=== PATIENT | female | born 1940 | race Caucasian/White ===

== ENCOUNTER 2017-01-13 10:02 | Emergency (ER) | payer MEDICARE, MEDICAID ==
[~2017-01-13] VITALS: Ht 147.3 cm; Wt 43.2 kg
[~2017-01-13 10:02] MED LIST: ACTOS 15MG TAB15 MG PO; ALPRAZOLAM0.5 MG PO; ASPIRIN 81M81 MG/TA2 PO; BACTRIM DS 8001 TAB PO; CEFTIN500 MG PO; DUO-KAPS1 CAP PO; FLEXERIL5 MG PO; GLIPIZIDE XL5 MG PO; GLIPIZIDE10 MG PO; GLUCOPHAGE1000 MG PO; GLUCOTROL XL10 MG PO; GLUCOTROL10 MG PO; GLUCOTROL5 MG PO; HYDROCODONE/APAP; HYOSCYAMINE0.125 M5 SL; LANTUS100 U/ML SC; LEVEMIR100 U/ML; LEVEMIR100 U/ML SC; LIPITOR 10MG10 MG PO; LOPRESSOR 550 MG/TAB PO; LOTREL 10 MG-401 CAP PO; LOTREL 5 MG-201 CAP PO; METFORMIN500 MG PO; METOPROLOL SUCC50 MG PO; NEXIUM40 MG PO; PERCOCET 325 MG1 TA2 PO; PERCOCET 5/321 UDTAB PO; PYRIDIUM200 M1 PO; REMERON30 MG PO; SINGULAIR 110 MG/TAB PO; SINGULAIR10 MG PO; TOPROL XL100 MG PO; UNABLE; VENTOLIN0.09 MG IH; XANAX 0.5MG0.5 MG PO; XANAX0.25 MG PO; XANAX0.5 MG PO; ZITHROMAX 250M250 MG PO; ZITHROMAX Z PA250 MG PO; ZOFRAN 4MG T4 MG/TAB PO; [UNRECOGNIZED DRUG - REMARK]
[2017-01-13 10:03] VITALS: BP 167/72; PULSE 76; TEMP 97.5
[2017-01-13 10:43] LABS: BASO # 0.1 (0.0-0.2); BASO % 0.9 % (0.0-2.0); EOS # 0.2 (0.0-0.7); EOS % 2.7 % (0-4.0); GRAN # 3.2 (1.4-6.5); GRAN % 50.9 % (42.2-75.2); LYMPH # 2.4 (1.2-3.4); LYMPH % 36.9 % (20.0-51.0); MEAN CELL VOLUME 88 fl (80.0-100.0); MEAN CORPUSCULAR HGB CONC 32 g/dl (33.0-37.0); MONO # 0.5 (0.1-0.6); MONO % 8.3 % (1.7-9.3); PLATELET COUNT 132 K/mm3 (130-400); RED BLOOD COUNT 4.16 M/mm3 (4.10-5.30); WHITE BLOOD COUNT 6.4 K/mm3 (4.8-10.8)
[2017-01-13 10:45] LABS: HEMATOCRIT 36.7 % (37.0-47.0); HEMOGLOBIN 11.9 g/dl (12.5-16.0); MEAN CORPUSCULAR HEMOGLOBIN 29 pg (27.0-31.0)
[2017-01-13 10:52] LABS: ADJUSTED CALCIUM 10.6 mg/dL (8.4-10.2); ALBUMIN 4.3 gm/dL (3.5-5.0); BILIRUBIN,TOTAL 0.9 mg/dL (0.0-1.0); CALCIUM 10.8 mg/dL (8.4-10.2); CREATININE, serum 0.9 mg/dL (0.52-1.25); POTASSIUM 4.3 mmol/L (3.4-5.0); TOTAL PROTEIN 7.5 gm/dL (6.4-8.2)
[2017-01-13] MEDS ORDERED: NORVASC 10MG10 MG PO (11:29)
[2017-01-13] MEDS ORDERED: HUMALOG100 U/ML SQ (11:31)
[2017-01-13] MEDS ORDERED: ZESTRIL40 MG PO (11:32)
[2017-01-13] MEDS ORDERED: PREDFORTE5ML (11:35)
[2017-01-13] MEDS ORDERED: RESTASIS 60VL (11:36)
[2017-01-13] MEDS ORDERED: PREVALITE4 GM/5.5 G PO (11:36)
[2017-01-13] MEDS ORDERED: PROAIR HFA0.09 MG/AC IH (11:36)
[2017-01-13] MEDS ORDERED: DUREZOL 5 ML5 ML OU (11:37)
[2017-01-13] MEDS ORDERED: POLYMYXIN B/TRIMETH (11:38)
[2017-01-13] MEDS ORDERED: NATURE'S BLE1000 MCG PO (11:58)
[2017-01-13] MEDS ORDERED: ANTIVERT 25MG25 MG PO (12:38)
== END 2017-01-13 12:53 | disposition home or self-care (01) ==
LOC: COL.ER 10:02
PROVIDERS: Emergency Medicine
DX: R42 Dizziness and giddiness (principal); E11.9 Type 2 diabetes mellitus without complications; I10 Essential (primary) hypertension; Z79.84 Long term (current) use of oral hypoglycemic drugs
CPT/HCPCS: J2550; J7030

== ENCOUNTER 2017-04-26 20:23 | Emergency (ER) | payer MEDICARE, MEDICAID ==
[~2017-04-26] VITALS: Ht 147.3 cm; Wt 43.6 kg
[~2017-04-26 20:23] MED LIST changes: +ANTIVERT 25MG25 MG PO; +DUREZOL 5 ML5 ML OU; +HUMALOG100 U/ML SQ; +NATURE'S BLE1000 MCG PO; +NORVASC 10MG10 MG PO; +POLYMYXIN B/TRIMETH; +PREDFORTE5ML; +PREVALITE4 GM/5.5 G PO; +PROAIR HFA0.09 MG/AC IH; +RESTASIS 60VL; +ZESTRIL40 MG PO
[2017-04-26 20:26] VITALS: BP 169/77; TEMP 99.4
[2017-04-26 22:20] VITALS: PULSE 72
== END 2017-04-26 22:22 | disposition home or self-care (01) ==
LOC: COL.ER 20:23
DX: T26.62XA Corrosion of cornea and conjunctival sac, left eye, initial encounter (principal); E11.9 Type 2 diabetes mellitus without complications; I10 Essential (primary) hypertension; F32.9 Major depressive disorder, single episode, unspecified; F41.9 Anxiety disorder, unspecified; K58.9 Irritable bowel syndrome, unspecified; Z87.891 Personal history of nicotine dependence; Z79.4 Long term (current) use of insulin; Z79.84 Long term (current) use of oral hypoglycemic drugs; Z79.82 Long term (current) use of aspirin

== ENCOUNTER 2017-08-28 19:53 | Emergency (ER) | payer MEDICARE, MEDICAID ==
[~2017-08-28] VITALS: Ht 147.3 cm; Wt 42.7 kg
[2017-08-28 19:59] VITALS: TEMP 99
[2017-08-28 20:45] LABS: BASO # 0.1 (0.0-0.2); EOS # 0.2 (0.0-0.7); EOS % 2.5 % (0-4.0); GRAN # 2.9 (1.4-6.5); LYMPH # 3.9 (1.2-3.4); LYMPH % 50.2 % (20.0-51.0); MEAN CELL VOLUME 90 fl (80.0-100.0); MEAN CORPUSCULAR HGB CONC 33 g/dl (33.0-37.0); MEAN PLATELET VOLUME 9.8 fl (7.4-10.4); MONO # 0.7 (0.1-0.6); MONO % 9.2 % (1.7-9.3); PLATELET COUNT 139 K/mm3 (130-400); RED BLOOD COUNT 3.87 M/mm3 (4.10-5.30); WHITE BLOOD COUNT 7.9 K/mm3 (4.8-10.8)
[2017-08-28 20:47] LABS: HEMATOCRIT 34.8 % (37.0-47.0); HEMOGLOBIN 11.3 g/dl (12.5-16.0); MEAN CORPUSCULAR HEMOGLOBIN 29 pg (27.0-31.0)
[2017-08-28 20:52] LABS: INR 0.9 (0.8-3.0); PROTHROMBIN TIME 10.8 SECONDS (9.7-12.8)
[2017-08-28 20:54] LABS: PARTIAL THROMBOPLASTIN TIME 31.4 SECONDS (26.0-37.0)
[2017-08-28 20:57] LABS: ADJUSTED CALCIUM 9.9 mg/dL (8.4-10.2); ALANINE AMINOTRANSFERASE 36 U/L (9-52); ALBUMIN 4.5 gm/dL (3.5-5.0); ALKALINE PHOSPHATASE 60 U/L (50-136); ANION GAP 11 mmol/L (7-16); BILIRUBIN,TOTAL 0.4 mg/dL (0.0-1.0); BLOOD UREA NITROGEN 11 mg/dL (7-17); CALCIUM 10.3 mg/dL (8.4-10.2); CARBON DIOXIDE 24 mmol/L (22-30); CHLORIDE 102 mmol/L (98-107); CREATININE, serum 0.89 mg/dL (0.52-1.25); GLUCOSE 221 mg/dL (74-106); POTASSIUM 3.9 mmol/L (3.4-5.0); SODIUM 137 mmol/L (137-145); TOTAL PROTEIN 7.3 gm/dL (6.4-8.2)
[2017-08-28 21:08] LABS: TROPONIN-I < 0.012 ng/mL (0.000-0.034)
[2017-08-28 23:41] VITALS: BP 134/75; PULSE 64
== END 2017-08-28 23:51 | disposition home or self-care (01) ==
LOC: COL.ER 19:53
PROVIDERS: Emergency Medicine
DX: K21.9 Gastro-esophageal reflux disease without esophagitis (principal); K44.9 Diaphragmatic hernia without obstruction or gangrene; E11.9 Type 2 diabetes mellitus without complications; I10 Essential (primary) hypertension; E78.5 Hyperlipidemia, unspecified; Z79.4 Long term (current) use of insulin; Z79.82 Long term (current) use of aspirin; Z98.890 Other specified postprocedural states
CPT/HCPCS: J2405

== ENCOUNTER 2018-01-23 17:41 | Emergency (ER) | payer MEDICARE, MEDICAID ==
[~2018-01-23] VITALS: Ht 147.3 cm; Wt 41.8 kg
[2018-01-23 17:50] VITALS: TEMP 98.5
[2018-01-23 19:13] LABS: COLLECTION METHOD CLEAN CATCH
[2018-01-23 19:20] LABS: BASO # 0.1 (0.0-0.2); BASO % 0.9 % (0.0-2.0); EOS # 0.2 (0.0-0.7); EOS % 2.9 % (0-4.0); GRAN % 37.3 % (42.2-75.2); HEMATOCRIT 34.3 % (37.0-47.0); HEMOGLOBIN 10.8 g/dl (12.5-16.0); LYMPH % 50.1 % (20.0-51.0); MEAN CELL VOLUME 86 fl (80.0-100.0); MEAN CORPUSCULAR HEMOGLOBIN 27 pg (27.0-31.0); MEAN CORPUSCULAR HGB CONC 32 g/dl (33.0-37.0); MEAN PLATELET VOLUME 9.8 fl (7.4-10.4); MONO # 0.7 (0.1-0.6); MONO % 8.7 % (1.7-9.3); PLATELET COUNT 163 K/mm3 (130-400); RED BLOOD COUNT 3.99 M/mm3 (4.10-5.30); REDCELL DISTRIBUTION WIDTH-CV 13.2 % (11.5-14.5)
[2018-01-23 19:22] LABS: PH 5 (5-8); SQUAMOUS EPITHELIAL 0-2 /hpf; URINE APPEARANCE Clear; URINE BACTERIA None Seen /hpf; URINE BILIRUBIN Negative (NEGATIVE); URINE BLOOD Negative (NEGATIVE); URINE COLOR Yellow; URINE GLUCOSE Negative (NEGATIVE); URINE KETONE Negative (NEGATIVE); URINE LEUKOCYTE ESTERASE Trace (NEGATIVE); URINE NITRATE Negative (NEGATIVE); URINE PROTEIN(semi-quant) Negative (NEGATIVE); URINE RBC 0-2 /hpf; URINE UROBILINOGEN Negative (NEGATIVE)
[2018-01-23 19:31] LABS: ALANINE AMINOTRANSFERASE 30 U/L (9-52); ALBUMIN 4.4 gm/dL (3.5-5.0); ALKALINE PHOSPHATASE 80 U/L (50-136); ANION GAP 15 mmol/L (7-16); AST,SGOT 29 U/L (15-37); BILIRUBIN,TOTAL 0.6 mg/dL (0.0-1.0); BLOOD UREA NITROGEN 16 mg/dL (7-17); CALCIUM 10.9 mg/dL (8.4-10.2); CARBON DIOXIDE 25 mmol/L (22-30); CHLORIDE 100 mmol/L (98-107); CREATININE, serum 1.24 mg/dL (0.52-1.25); GLUCOSE 189 mg/dL (74-106); LIPASE 11 U/L (23-300); POTASSIUM 4.2 mmol/L (3.4-5.0); SODIUM 139 mmol/L (137-145); TOTAL PROTEIN 8.4 gm/dL (6.4-8.2)
[2018-01-23 19:41] LABS: C-REACTIVE PROTEIN < 0.5 mg/dL (0.0-0.9); TROPONIN-I < 0.012 ng/mL (0.000-0.034)
[2018-01-23] MEDS ORDERED: AMOXICILLIN 8751 TAB PO (21:17)
[2018-01-23] MEDS ORDERED: PERCOCET 325 MG1 TA2 PO (21:17)
[2018-01-23 21:24] VITALS: BP 165/81; PULSE 69
== END 2018-01-23 21:35 | disposition home or self-care (01) ==
LOC: COL.ER 17:41
PROVIDERS: Emergency Medicine
DX: K57.92 Diverticulitis of intestine, part unspecified, without perforation or abscess without bleeding (principal); G89.29 Other chronic pain; K08.89 Other specified disorders of teeth and supporting structures; E11.9 Type 2 diabetes mellitus without complications; I10 Essential (primary) hypertension; K58.9 Irritable bowel syndrome, unspecified; K21.9 Gastro-esophageal reflux disease without esophagitis; D64.9 Anemia, unspecified; Z87.39 Personal history of other diseases of the musculoskeletal system and connective tissue; Z90.710 Acquired absence of both cervix and uterus; Z90.49 Acquired absence of other specified parts of digestive tract; Z90.89 Acquired absence of other organs; Z98.890 Other specified postprocedural states; Z79.4 Long term (current) use of insulin; Z79.82 Long term (current) use of aspirin
CPT/HCPCS: J1170; J2405; J7040

== ENCOUNTER → 2019-03-26 | Outpatient (CLI) | payer MEDICARE, MEDICAID ==
[~2019-03-26] MED LIST changes: +AMOXICILLIN 8751 TAB PO
== END ==
LOC: COL.RAD 09:18
DX: R10.11 Right upper quadrant pain (principal); R10.12 Left upper quadrant pain

== ENCOUNTER 2019-04-21 05:44 | Day surgery (SDC) | payer MEDICARE, MEDICAID ==
[~2019-04-21] VITALS: Ht 144.8 cm; Wt 45.0 kg
[2019-04-21 06:17] VITALS: BP 157/58; PULSE 72; TEMP 98.2
[2019-04-21] MEDS ORDERED: LEVEMIR FLEX100 U/ML SQ (06:29)
[2019-04-21] MEDS ORDERED: LIDODERM 5% PATC1 EA TP (06:30)
[2019-04-21] MEDS ORDERED: ANTIVERT 12.512.5 MG PO (06:31)
[2019-04-21] MEDS ORDERED: VITAMIND3 5000 PO (06:32)
[2019-04-21] MEDS ORDERED: IBU600 MG PO (07:56)
[2019-04-21 08:17] VITALS: TEMP 97.6
[2019-04-21 08:30] VITALS: BP 138/58; PULSE 67
--- NOTE | 2019-04-21 08:30 | NUR ---
Patient returns to room 8 per cart from PACU and is alert and oriented x3. IV fluids infusing and site is free of redness. Temp 97.7 and room air sats 96%. Mesh panties and pad in place with scant bloody drainage noted. Denies pain or nausea at present. Siderails up x2 and call light in reach. Allowed to rest.
[2019-04-21 08:45] VITALS: BP 107/40; PULSE 62
--- NOTE | 2019-04-21 08:45 | NUR ---
Continues to rest without complaints of pain or nausea.
[2019-04-21 09:00] VITALS: BP 121/48; PULSE 65
--- NOTE | 2019-04-21 09:00 | NUR ---
Drinking coffee and eating jello. Continues to deny pain or nausea.
[2019-04-21 09:15] VITALS: BP 104/55; PULSE 65
--- NOTE | 2019-04-21 09:15 | NUR ---
Family in room. Room air sats 96%.
--- NOTE | 2019-04-21 09:25 | NUR ---
Patient assisted up to the bathroom and voids yellow urine. Jocelyn pad changed of scant pink tinged drainage. Returns to room and gait is steady.
--- NOTE | 2019-04-21 09:40 | NUR ---
IV was discontinued and given dismissal instructions. Voices understanding of home cares and need to use Premarin cream daily and to use vaseline or aquafor three times daily to incisional area. Provided follow up appointment date and time and office number for questions and concerns.
--- NOTE | 2019-04-21 09:44 | NUR ---
Patient dismissed to home per private vehicle driven by family and taken to the front door per wheelchair by RN and assisted into vehicle. Instructed to picker/puller script for Motrin from pharmacy.
== END 2019-04-21 09:44 | disposition home or self-care (01) ==
LOC: SDCO 05:44
DX: N90.5 Atrophy of vulva (principal); N90.89 Other specified noninflammatory disorders of vulva and perineum; N95.2 Postmenopausal atrophic vaginitis; M81.0 Age-related osteoporosis without current pathological fracture; K21.9 Gastro-esophageal reflux disease without esophagitis; G89.29 Other chronic pain; I12.9 Hypertensive chronic kidney disease with stage 1 through stage 4 chronic kidney disease, or unspecified chronic kidney disease; E11.22 Type 2 diabetes mellitus with diabetic chronic kidney disease; N18.3 Chronic kidney disease, stage 3 (moderate); F41.9 Anxiety disorder, unspecified; M46.90 Unspecified inflammatory spondylopathy, site unspecified; I25.2 Old myocardial infarction; D63.1 Anemia in chronic kidney disease; Z88.5 Allergy status to narcotic agent; Z88.8 Allergy status to other drugs, medicaments and biological substances; Z88.2 Allergy status to sulfonamides; Z88.1 Allergy status to other antibiotic agents; Z79.82 Long term (current) use of aspirin; Z79.4 Long term (current) use of insulin; Z79.52 Long term (current) use of systemic steroids; Z80.3 Family history of malignant neoplasm of breast; Z80.0 Family history of malignant neoplasm of digestive organs; Z87.891 Personal history of nicotine dependence; Z90.710 Acquired absence of both cervix and uterus; Z83.3 Family history of diabetes mellitus
CPT/HCPCS: J2405; J2704; J3010; J7030

== ENCOUNTER → 2019-11-26 | Outpatient (CLI) | payer MEDICARE, MEDICAID ==
[~2019-11-26] MED LIST changes: +ANTIVERT 12.512.5 MG PO; +IBU600 MG PO; +LEVEMIR FLEX100 U/ML SQ; +LIDODERM 5% PATC1 EA TP; +VITAMIND3 5000 PO
== END ==
LOC: COL.RAD 11-24 13:30
DX: K44.9 Diaphragmatic hernia without obstruction or gangrene (principal); J84.10 Pulmonary fibrosis, unspecified; I51.7 Cardiomegaly; I89.8 Other specified noninfective disorders of lymphatic vessels and lymph nodes; K75.3 Granulomatous hepatitis, not elsewhere classified; D73.89 Other diseases of spleen; I86.8 Varicose veins of other specified sites; M41.86 Other forms of scoliosis, lumbar region; Z90.49 Acquired absence of other specified parts of digestive tract; Z90.710 Acquired absence of both cervix and uterus; Z90.89 Acquired absence of other organs
CPT/HCPCS: Q9967

== ENCOUNTER → 2020-02-18 | Outpatient (CLI) | payer MEDICARE, MEDICAID ==
[~2020-02-18] MED LIST changes: +IRON TABLETS325 MG PO; +NEXIUM 40MG40 MG PO; +VITRON-C PO
== END ==
LOC: COL.RAD 08:47
DX: R10.9 Unspecified abdominal pain (principal); R14.0 Abdominal distension (gaseous); Z90.49 Acquired absence of other specified parts of digestive tract

== ENCOUNTER 2020-02-22 07:15 | Day surgery (SDC) | payer MEDICARE, MEDICAID ==
[~2020-02-22] VITALS: Ht 144.8 cm; Wt 49.3 kg
[~2020-02-22 07:15] MED LIST changes: -VITRON-C PO
[2020-02-22 08:03] VITALS: BP 149/59; PULSE 60; TEMP 97.6
[2020-02-22] MEDS ORDERED: VITRON-C PO (08:15)
[2020-02-22 09:35] VITALS: BP 130/66; PULSE 67; TEMP 97.6
--- NOTE | 2020-02-22 09:35 | NUR ---
TO BAY 3 PER CART FROM ENDOSCOPY. ALERT ORIENTED X3, TALKING TO DAUGHTER AND STAFF. AMBULATED TO RECLINER WITH ASSIST. DENIES PAIN OR DISCOMFORT AT THIS TIME. RECEIVED COFFEE AND MUFFIN.
[2020-02-22 09:50] VITALS: BP 78/52; PULSE 60
--- NOTE | 2020-02-22 09:50 | NUR ---
DR OJEDA INTO TALK WITH PATIENT AND HER DAUGHTER .
[2020-02-22 10:05] VITALS: BP 146/76; PULSE 61
--- NOTE | 2020-02-22 10:05 | NUR ---
ATE 50% MUFFIN AND DRANK COFFEE.
--- NOTE | 2020-02-22 10:20 | NUR ---
RECEIVED DISCHARGE INSTRUCTIONS AND VERBALIZED UNDERSTANDING. DISCONTINUED IV AND INT
--- NOTE | 2020-02-22 10:30 | NUR ---
DAUGHTER ASSISTED HER DRESSED AND CLEANED UP FROM INCONTINENT STOOL. UPON STANDING PATIENT STATED SHE HAD ANOTHER ACCIDENT IN HER PAD. NURSE ASSISTED PATIENT TO BATHROOM. CHANGED PAD, PERICARE AND NEW PAD AND HOSPITAL PJ BOTTOMS.
--- NOTE | 2020-02-22 10:50 | NUR ---
DISCHARGED PER WC BY NURSING STAFF TO PRIVATE CAR IN CARE OF DAUGHTER SANCHEZ
== END 2020-02-22 11:00 | disposition home or self-care (01) ==
LOC: SDCO 07:15
DX: K29.50 Unspecified chronic gastritis without bleeding (principal); D50.9 Iron deficiency anemia, unspecified; K21.9 Gastro-esophageal reflux disease without esophagitis; K31.84 Gastroparesis; K58.0 Irritable bowel syndrome with diarrhea; I25.2 Old myocardial infarction; G89.29 Other chronic pain; I12.9 Hypertensive chronic kidney disease with stage 1 through stage 4 chronic kidney disease, or unspecified chronic kidney disease; E11.22 Type 2 diabetes mellitus with diabetic chronic kidney disease; N18.3 Chronic kidney disease, stage 3 (moderate); D63.1 Anemia in chronic kidney disease; Z20.828 Contact with and (suspected) exposure to other viral communicable diseases; Z86.010 Personal history of colon polyps; Z79.82 Long term (current) use of aspirin; Z79.4 Long term (current) use of insulin; Z88.2 Allergy status to sulfonamides; Z88.5 Allergy status to narcotic agent; Z88.8 Allergy status to other drugs, medicaments and biological substances; Z88.3 Allergy status to other anti-infective agents; Z90.710 Acquired absence of both cervix and uterus; Z90.49 Acquired absence of other specified parts of digestive tract; Z87.891 Personal history of nicotine dependence
CPT/HCPCS: J2704; J7030

== ENCOUNTER → 2021-06-12 | Outpatient (CLI) | payer MEDICARE, MEDICAID ==
[~2021-06-12] MED LIST changes: +NORCO 325 MG-51 TAB PO; +VITRON-C PO
== END ==
LOC: COL.RAD 09:21
DX: K46.0 Unspecified abdominal hernia with obstruction, without gangrene (principal); K22.4 Dyskinesia of esophagus; K44.9 Diaphragmatic hernia without obstruction or gangrene; K58.0 Irritable bowel syndrome with diarrhea; K21.9 Gastro-esophageal reflux disease without esophagitis; Z86.010 Personal history of colon polyps

== ENCOUNTER 2021-06-13 15:13 | Emergency (ER) | payer MEDICARE, MEDICAID ==
[~2021-06-13] VITALS: Ht 147.3 cm; Wt 50.9 kg
[~2021-06-13 15:13] MED LIST changes: -NORCO 325 MG-51 TAB PO
[2021-06-13 17:04] LABS: BASO # 0.1 K/mm3 (0.0-0.2); BASO % 0.8 % (0.0-2.0); EOS # 0.2 K/mm3 (0.0-0.7); EOS % 2.9 % (0-4.0); GRAN # 2.3 K/mm3 (1.4-6.5); HEMOGLOBIN 12.2 g/dl (12.5-16.0); LYMPH # 2.7 K/mm3 (1.2-3.4); LYMPH % 45.7 % (20.0-51.0); MEAN CELL VOLUME 88 fl (80.0-100.0); MEAN CORPUSCULAR HEMOGLOBIN 29 pg (27.0-31.0); MEAN CORPUSCULAR HGB CONC 33 g/dl (33.0-37.0); MEAN PLATELET VOLUME 9.9 fl (7.4-10.4); MONO # 0.7 K/mm3 (0.1-0.6); MONO % 11.3 % (1.7-9.3); PLATELET COUNT 127 K/mm3 (130-400); REDCELL DISTRIBUTION WIDTH-CV 13.2 % (11.5-14.5)
[2021-06-13 17:28] LABS: ALBUMIN 3.7 gm/dL (3.4-4.8); BILIRUBIN,TOTAL 0.4 mg/dL (0.2-1.2); C-REACTIVE PROTEIN 0.7 mg/dL (0.00-0.50); CALCIUM 10.6 mg/dL (8.4-10.2); CREATININE, serum 1.4 mg/dL (0.57-1.11); POTASSIUM 3.9 mmol/L (3.5-4.5); TOTAL PROTEIN 7.2 gm/dL (6.2-8.1)
[2021-06-13] MEDS ORDERED: NORCO 325 MG-51 TAB PO (18:25)
[2021-06-13 19:22] VITALS: BP 150/81; PULSE 69; TEMP 97.6
== END 2021-06-13 19:22 | disposition home or self-care (01) ==
LOC: COL.ER 15:13
PROVIDERS: Emergency Medicine
DX: R10.31 Right lower quadrant pain (principal); R11.0 Nausea; E11.9 Type 2 diabetes mellitus without complications; I10 Essential (primary) hypertension; K21.9 Gastro-esophageal reflux disease without esophagitis; Z90.710 Acquired absence of both cervix and uterus; Z87.891 Personal history of nicotine dependence; Z79.4 Long term (current) use of insulin; Z79.899 Other long term (current) drug therapy
CPT/HCPCS: J2405; J3010; J7030; Q9967

== ENCOUNTER 2024-01-12 14:38 | Emergency (ER) | payer MEDICARE, MEDICAID ==
[~2024-01-12] VITALS: Ht 147.3 cm; Wt 50.9 kg
[~2024-01-12 14:38] MED LIST changes: +NORCO 325 MG-51 TAB PO
[2024-01-12 14:41] VITALS: TEMP 98.8
[2024-01-12] MEDS ORDERED: Ondansetron 4 MG/2 ML VIAL IV ONE (14:45)
[2024-01-12] MEDS ORDERED: Morphine 4 MG/ML VIAL IV ONE ×2 (14:45→18:15)
[2024-01-12] MEDS ORDERED: NS 1,000 ML IV ONE (15:00)
[2024-01-12 15:02] LABS: HEMATOCRIT 43.3 % (37.0-47.0); HEMOGLOBIN 14.3 g/dl (12.5-16.0); MEAN CELL VOLUME 85 fl (80.0-100.0); MEAN CORPUSCULAR HEMOGLOBIN 28 pg (27-31); MEAN CORPUSCULAR HGB CONC 33 g/dl (33.0-37.0); MEAN PLATELET VOLUME 9.9 fl (7.4-10.4); PLATELET COUNT 173 K/mm3 (130-400); RED BLOOD COUNT 5.07 M/mm3 (4.10-5.30); REDCELL DISTRIBUTION WIDTH-CV 13.1 % (11.5-14.5)
[2024-01-12 15:26] LABS: ACETONE,SERUM NEGATIVE
[2024-01-12 15:34] LABS: ALANINE AMINOTRANSFERASE 24 U/L (0-55); ALKALINE PHOSPHATASE 75 U/L (40-150); ANION GAP 12 mmol/L (7-16); AST,SGOT 21 U/L (5-34); BILIRUBIN,TOTAL 1.2 mg/dL (0.2-1.2); BLOOD UREA NITROGEN 21 mg/dL (10-20); C-REACTIVE PROTEIN 0.09 mg/dL (0.00-0.50); CALCIUM 11.2 mg/dL (8.4-10.2); CHLORIDE 102 mEq/L (98-107); CREATININE, serum 1.68 mg/dL (0.57-1.11); GLUCOSE 280 mg/dL (70-99); LIPASE 10 U/L (8-78); MAGNESIUM 1.9 mg/dL (1.6-2.6); POTASSIUM 4.4 mEq/L (3.5-4.5); SODIUM 136 mEq/L (136-145); TOTAL PROTEIN 7.6 g/dl (6.2-8.1)
[2024-01-12 15:44] LABS: PROTHROMBIN TIME 11.4 SECONDS (9.7-12.8)
[2024-01-12 15:47] LABS: PARTIAL THROMBOPLASTIN TIME 38.3 SECONDS (26.0-37.0)
[2024-01-12 16:04] LABS: COLLECTION METHOD CLEAN CATCH
[2024-01-12 16:11] LABS: PH 5.5 (5.0-8.5); URINE APPEARANCE CLEAR (CLEAR/HAZY); URINE BLOOD NEGATIVE (NEGATIVE); URINE COLOR YELLOW (YELLOW); URINE GLUCOSE 1+ (NEGATIVE); URINE KETONE NEGATIVE (NEGATIVE); URINE NITRATE NEGATIVE (NEGATIVE); URINE PROTEIN(semi-quant) TRACE (NEGATIVE); URINE UROBILINOGEN 0.2 E.U/dL (0.2-1.0)
[2024-01-12 16:33] LABS: BAND 4 % (0-10); EOSINOPHIL 1 % (0-4); LYMPHOCYTE 14 % (20.0-51.0); NEUTROPHILS 72 % (42.0-75.2)
[2024-01-12 16:34] LABS: ANISOCYTOSIS 1+; PLATELET ESTIMATE NORMAL (NORMAL)
[2024-01-12] MEDS ORDERED: Amoxicillin/Clavulanate K+ 500/125 MG TAB PO ONE (18:00)
[2024-01-12] MEDS ORDERED: AMOXICILLIN/CLA1 TA1 PO (18:05)
[2024-01-12] MEDS ORDERED: OXYCODONE H5 MG/5 ML PO (18:07)
[2024-01-12] MEDS ORDERED: ZOFRAN ODT4 MG PO (18:07)
[2024-01-12 18:21] VITALS: BP 149/68; PULSE 89
[2024-01-13] MEDS ORDERED: ROXICODONE 55 MG/TAB PO (09:16)
== END 2024-01-12 18:21 | disposition home or self-care (01) ==
LOC: COL.ER 14:38
PROVIDERS: Emergency Medicine
DX: K52.9 Noninfective gastroenteritis and colitis, unspecified (principal); Z88.2 Allergy status to sulfonamides
CPT/HCPCS: J2270; J2405; J7030

== ENCOUNTER 2024-01-13 12:02 | Emergency (ER) | payer MEDICARE, MEDICAID ==
[~2024-01-13] VITALS: Ht 147.3 cm; Wt 50.9 kg
[~2024-01-13 12:02] MED LIST changes: +AMOXICILLIN/CLA1 TA1 PO; +OXYCODONE H5 MG/5 ML PO; +ROXICODONE 55 MG/TAB PO; +ZOFRAN ODT4 MG PO
[2024-01-13] MEDS ORDERED: Ondansetron 4 MG/2 ML VIAL IV ONE (12:15)
[2024-01-13] MEDS ORDERED: fentaNYL 50 MCG/ML 2 ML VIAL IV ONE ×2 (12:15→12:30)
[2024-01-13] MEDS ORDERED: LR 1,000 ML IV ONE (12:15)
[2024-01-13] MEDS ORDERED: Acetaminophen 325 MG TAB PO ONE (12:30)
[2024-01-13 12:41] LABS: MEAN CELL VOLUME 86 fl (80.0-100.0); MEAN CORPUSCULAR HGB CONC 33 g/dl (33.0-37.0); PLATELET COUNT 125 K/mm3 (130-400); RED BLOOD COUNT 4.26 M/mm3 (4.10-5.30); REDCELL DISTRIBUTION WIDTH-CV 13.2 % (11.5-14.5)
[2024-01-13 12:48] LABS: HEMATOCRIT 36.6 % (37.0-47.0); HEMOGLOBIN 11.9 g/dl (12.5-16.0); MEAN CORPUSCULAR HEMOGLOBIN 28 pg (27-31)
[2024-01-13 12:58] LABS: ALBUMIN 3.3 g/dL (3.4-4.8); ANION GAP 10 mmol/L (7-16); AST,SGOT 16 U/L (5-34); BILIRUBIN,TOTAL 2.1 mg/dL (0.2-1.2); BLOOD UREA NITROGEN 19 mg/dL (10-20); C-REACTIVE PROTEIN 11.74 mg/dL (0.00-0.50); CALCIUM 9.4 mg/dL (8.4-10.2); CHLORIDE 99 mEq/L (98-107); CREATININE, serum 1.81 mg/dL (0.57-1.11); GLUCOSE 375 mg/dL (70-99); POTASSIUM 3.9 mEq/L (3.5-4.5); SODIUM 129 mEq/L (136-145); TOTAL PROTEIN 6.4 g/dl (6.2-8.1)
[2024-01-13 13:07] LABS: BAND 1 % (0-10); BASOPHIL 1 % (0-2); LYMPHOCYTE 27 % (20.0-51.0); NEUTROPHILS 63 % (42.0-75.2); PLATELET ESTIMATE NORMAL (NORMAL)
[2024-01-13 13:13] LABS: ALANINE AMINOTRANSFERASE 23 U/L (0-55); ALKALINE PHOSPHATASE 66 U/L (40-150)
[2024-01-13 13:17] LABS: LIPASE < 7 U/L (8-78)
[2024-01-13 14:46] VITALS: BP 119/59; PULSE 78; TEMP 98.9
== END 2024-01-13 15:23 | disposition home or self-care (01) ==
LOC: COL.ER 12:02
PROVIDERS: Family Medicine
DX: R10.9 Unspecified abdominal pain (principal); E11.65 Type 2 diabetes mellitus with hyperglycemia
CPT/HCPCS: J2405; J2543; J3010; J7120

== ENCOUNTER 2024-03-14 18:37 | Inpatient (IN) | payer MEDICARE, MEDICAID ==
[~2024-03-14] VITALS: Ht 147.3 cm; Wt 50.7 kg
[~2024-03-14 18:37] MED LIST changes: +PRINIVIL40 MG PO; -ZESTRIL40 MG PO
[2024-03-14] MEDS ORDERED: Ondansetron 4 MG/2 ML VIAL IV ONE (18:45)
[2024-03-14] MEDS ORDERED: LR 1,000 ML IV ONE (18:45)
[2024-03-14] MEDS ORDERED: Morphine 4 MG/ML VIAL IV ONE (19:00)
[2024-03-14 19:02] LABS: BASO # 0.1 K/mm3 (0.0-0.2); BASO % 0.3 % (0.0-2.0); EOS % 0.1 % (0.0-4.0); GRAN # 11.5 K/mm3 (1.4-6.5); GRAN % 77.2 % (42.2-75.2); HEMATOCRIT 40.6 % (37.0-47.0); HEMOGLOBIN 13.3 g/dl (12.5-16.0); LYMPH # 2.4 K/mm3 (1.2-3.4); LYMPH % 15.7 % (20.0-51.0); MEAN CELL VOLUME 83 fl (80.0-100.0); MEAN CORPUSCULAR HEMOGLOBIN 27 pg (27-31); MEAN CORPUSCULAR HGB CONC 33 g/dl (33.0-37.0); MEAN PLATELET VOLUME 10.2 fl (7.4-10.4); MONO # 0.9 K/mm3 (0.1-0.6); MONO % 6.2 % (1.7-9.3); PLATELET COUNT 156 K/mm3 (130-400); REDCELL DISTRIBUTION WIDTH-CV 14.5 % (11.5-14.5)
[2024-03-14 19:17] LABS: ALANINE AMINOTRANSFERASE 26 U/L (0-55); ALBUMIN 3.8 g/dL (3.4-4.8); ALKALINE PHOSPHATASE 65 U/L (40-150); ANION GAP 12 mmol/L (7-16); AST,SGOT 31 U/L (5-34); BILIRUBIN,TOTAL 1.1 mg/dL (0.2-1.2); BLOOD UREA NITROGEN 13 mg/dL (10-20); C-REACTIVE PROTEIN 0.77 mg/dL (0.00-0.50); CALCIUM 10.4 mg/dL (8.4-10.2); CHLORIDE 102 mEq/L (98-107); CREATININE, serum 1.61 mg/dL (0.57-1.11); GLUCOSE 268 mg/dL (70-99); POTASSIUM 4.6 mEq/L (3.5-4.5); SODIUM 131 mEq/L (136-145); TOTAL PROTEIN 6.5 g/dl (6.2-8.1)
[2024-03-14 19:18] LABS: LIPASE < 7 U/L (8-78)
[2024-03-14] MEDS ORDERED: Iohexol 300 - 100 ML VIAL IV ONE (20:13)
[2024-03-14] MEDS ORDERED: NS IV ONE (20:14)
[2024-03-14 20:53] LABS: COLLECTION METHOD CLEAN CATCH
[2024-03-14] MEDS ORDERED: NS 1,000 ML IV ONE (21:00)
[2024-03-14 21:02] LABS: URINE APPEARANCE CLEAR (CLEAR/HAZY); URINE BLOOD NEGATIVE (NEGATIVE); URINE COLOR YELLOW (YELLOW); URINE GLUCOSE TRACE (NEGATIVE); URINE KETONE NEGATIVE (NEGATIVE); URINE NITRATE NEGATIVE (NEGATIVE); URINE PROTEIN(semi-quant) NEGATIVE (NEGATIVE); URINE UROBILINOGEN 0.2 E.U/dL (0.2-1.0)
[2024-03-14] MEDS ORDERED: PROTONIX 40MG T40 MG PO (23:15)
[2024-03-14] MEDS ORDERED: LASIX 20MG TABL20 MG PO (23:16)
[2024-03-14] MEDS ORDERED: LANTUS SOLOS100 U/ML SQ (23:16)
[2024-03-14] MEDS ORDERED: HUMALOG PEN100 U/ML SQ (23:18)
[2024-03-14] MEDS ORDERED: Albuterol 0.083% Neb Soln 2.5 MG/3 ML UD IH PRN (23:30)
[2024-03-14] MEDS ORDERED: ALPRAZolam 0.5 MG TAB PO PRN (23:30)
[2024-03-14] MEDS ORDERED: Insulin Glargine-ygfn (Lantus) SQ SCH (23:36)
[2024-03-14] MEDS ORDERED: fentaNYL 50 MCG/ML 2 ML VIAL IV PRN (23:45)
[2024-03-14] MEDS ORDERED: LR 1,000 ML IV SCH (23:45)
[2024-03-14] MEDS ORDERED: Ondansetron 4 MG/2 ML VIAL IV PRN (23:45)
[2024-03-14] MEDS ORDERED: Glucagon 1 MG VIAL IM PRN (23:45)
[2024-03-14] MEDS ORDERED: NS 1,000 ML IV SCH (23:45)
[2024-03-14] MEDS ORDERED: Dextrose (Glucose) 15 GM (4 x 3.75 GM) Chewable TABLET PACK PO PRN (23:45)
[2024-03-14] MEDS ORDERED: Dextrose 50% Water 25 GM/50 ML SYRINGE IV PRN (23:45)
[2024-03-15] VITALS (12 sets, daily range): BP systolic 102–143; BP diastolic 43–70; PULSE 57–85; TEMP 97.5–99.9
[2024-03-15] MEDS ORDERED: Insulin Lispro (HumaLOG) SQ SCH
[2024-03-15] MEDS ORDERED: NS 1,000 ML IV SCH (01:00)
--- NOTE | 2024-03-15 01:39 | NUR ---
Admission assessment completed- see documentation. Pt is alert and oriented. She is resting in the bed. She reports 7/10 abdmoninal pain. However, she denies nausea at this time. All orders initiated and medications administered as ordered. Contact precautions in place. PRN fentanyl administered for pain. She denies any other needs at this time. Fall precautions in place and call light left within reach.
[2024-03-15 06:09] LABS: BASO % 0.4 % (0.0-2.0); EOS % 0.2 % (0.0-4.0); GRAN # 6.4 K/mm3 (1.4-6.5); LYMPH # 3.1 K/mm3 (1.2-3.4); LYMPH % 28.4 % (20.0-51.0); MEAN CELL VOLUME 82 fl (80.0-100.0); MEAN CORPUSCULAR HGB CONC 33 g/dl (33.0-37.0); MEAN PLATELET VOLUME 9.7 fl (7.4-10.4); MONO # 1.2 K/mm3 (0.1-0.6); MONO % 10.7 % (1.7-9.3); PLATELET COUNT 125 K/mm3 (130-400); RED BLOOD COUNT 3.98 M/mm3 (4.10-5.30); REDCELL DISTRIBUTION WIDTH-CV 14.6 % (11.5-14.5)
[2024-03-15 06:10] LABS: HEMATOCRIT 32.6 % (37.0-47.0); HEMOGLOBIN 10.7 g/dl (12.5-16.0); MEAN CORPUSCULAR HEMOGLOBIN 27 pg (27-31)
[2024-03-15 06:24] LABS: CALCIUM 8.8 mg/dL (8.4-10.2); CREATININE, serum 1.31 mg/dL (0.57-1.11); POTASSIUM 3.9 mEq/L (3.5-4.5)
--- NOTE | 2024-03-15 07:13 | NUR ---
Dr. Derian Quiles was contacted for a GI consult. He stated that we can advance pt to a clear liquid diet if that is okay with the hospitalist. There is no hospitalist available at this time. Information passed to day shift nurse. He also stated that they will possibly do an EGD tomorrow. He asked when the pt's last EGD or colonoscopy was done. When asking the pt, she was unsure as to when her last EGD was and thought her last colonoscopy was about 5 years ago. This info was also communicated to the day shift nurse.
--- NOTE | 2024-03-15 08:00 | NUR ---
Pt. resting in bed upon entry. Administered scheduled meds per NOV. Pt. c/o nausea. Administered PRN zofran per NOV. Performed shift assessment. Pt. states last BM was 03/14. Denies liquid stools. Bowel sounds active in all quadrants. All other findings WNL. Pt. has been advanced from NPO to clear liquid diet, but denies appetite at this time. Accepted snack of Jell-O. Assisted pt. to restroom. Pt. has steady gait. Voiding yellow, clear urine. Pt. returned to bed w/ call light in reach. No further complaints or needs at this time.
[2024-03-15] MEDS ORDERED: Metoprolol Tartrate 50 MG TAB PO SCH (09:00)
[2024-03-15] MEDS ORDERED: Lisinopril 20 MG TAB PO SCH (09:00)
[2024-03-15] MEDS ORDERED: amLODIPine 10 MG TAB PO SCH (09:00)
--- NOTE | 2024-03-15 10:33 | NUR ---
SW met with patient to complete initial assessment for discharge planning. Patient verified that she lives alone in [place] in a handicapped accedssible apartment. She states she sees Dr. Hernandez as her PCP and uses [facility]. Patient denies having any DME other than her handicapped apartment accessories. Patient has Medicare and Medicaid. States her family drives her to appointments as she doesn't drive any longer. Patient lists her daughter Barbi as contact ([phone]) and her son Faustino as her DPOA ([phone]). Patient also gets Meals on Wheels and asked about Medicaid transportation. Discussed patient getting in touch with her Medicaid sample case porter to set that service up. Patient plans to return home at discharge. Discharge plan: Home
[2024-03-15] MEDS ORDERED: Ondansetron 4 MG/2 ML VIAL IV PRN ×2 (15:15→15:30)
[2024-03-15] MEDS ORDERED: Bisacodyl 5 MG TAB PO SCH ×2 (16:00)
[2024-03-15 16:55] LABS: CLOSTRIDIUM DIFF A/B NEG
[2024-03-15] MEDS ORDERED: ZOFRAN ODT4 MG PO (17:29)
[2024-03-15] MEDS ORDERED: NORCO 325 MG-51 TAB PO (17:31)
[2024-03-15] MEDS ORDERED: BENTYL 10MG10 MG/CAP PO (17:32)
[2024-03-15] MEDS ORDERED: FLONASE NASAL S16 GM NS (17:32)
[2024-03-15] MEDS ORDERED: Polyethylene Glycol 3350 119 GM BOTTLE PO SCH ×2 (18:00)
[2024-03-15] MEDS ORDERED: Montelukast 10 MG TAB PO SCH (21:00)
[2024-03-15] MEDS ORDERED: Atorvastatin 10 MG TAB PO SCH (21:00)
--- NOTE | 2024-03-15 21:58 | NUR ---
PT RESTING IN BED, ALERT AND ORIENTEDX4. RATES PAIN 8/10 IN HER MOUTH. PT ALSO HAVE ABDOMINAL CRAMPS FROM BOWEL PREP. PT FINISHED BOWEL PREP. PT HAS HAD MULTIPLE LOOSE STOOLS. ASSESSED PT AND GAVE NIGHT MEDS. IV FLUIDS RUNNING AT 75. PT IS VERY ANXOUS, GAVE XANAX. PT WILL BE NPO AT MIDNIGHT. NO OTHER COMPLAINTS AT THIS TIME. CALL LIGHT WITHIN REACH.
--- NOTE | 2024-03-15 23:31 | NUR ---
PT BLOOD SUGAR IS 45 GAVE 1 DEXTROSE TAB AT 1130. WILL CHECK AGAIN IN 15 MINUTES.
[2024-03-16] VITALS (12 sets, daily range): BP systolic 117–159; BP diastolic 55–85; PULSE 58–74; TEMP 97.8–98.6
--- NOTE | 2024-03-16 03:41 | NUR ---
PT BOWELS ARE CLEARING UP. VERY LITTLE SOLID BOWEL IN STOOL
[2024-03-16] MEDS ORDERED: Polyethylene Glycol 3350 119 GM BOTTLE PO SCH ×2 (06:00)
[2024-03-16 06:53] LABS: BASO # 0.1 K/mm3 (0.0-0.2); EOS # 0.1 K/mm3 (0.0-0.7); EOS % 1.6 % (0.0-4.0); GRAN # 2.5 K/mm3 (1.4-6.5); GRAN % 39.9 % (42.2-75.2); LYMPH # 2.9 K/mm3 (1.2-3.4); LYMPH % 46.6 % (20.0-51.0); MEAN CELL VOLUME 85 fl (80.0-100.0); MEAN CORPUSCULAR HEMOGLOBIN 27 pg (27-31); MEAN CORPUSCULAR HGB CONC 31 g/dl (33.0-37.0); MEAN PLATELET VOLUME 10.3 fl (7.4-10.4); MONO # 0.7 K/mm3 (0.1-0.6); MONO % 10.7 % (1.7-9.3); PLATELET COUNT 118 K/mm3 (130-400); RED BLOOD COUNT 4.14 M/mm3 (4.10-5.30); REDCELL DISTRIBUTION WIDTH-CV 14.8 % (11.5-14.5)
[2024-03-16 06:55] LABS: HEMATOCRIT 35.2 % (37.0-47.0)
--- NOTE | 2024-03-16 07:14 | NUR ---
BEDSIDE REPORT RECIEVED AT THIS TIME. PT VOICES NO CONCERNS OR COMPLAINTS. CALL LIGHT WITHIN REACH.
[2024-03-16 07:24] LABS: CALCIUM 8.9 mg/dL (8.4-10.2); CREATININE, serum 1.39 mg/dL (0.57-1.11); POTASSIUM 3.9 mEq/L (3.5-4.5)
--- NOTE | 2024-03-16 07:58 | NUR ---
SHIFT ASSESSMENT COMPLETED AT THIS TIME. PT REPORTS GETTING UP TP COMMODE OFTEN D/T BOWEL PREP. NO OTHER COMPLAINTS AT THIS TIME.
--- NOTE | 2024-03-16 08:45 | NUR ---
MORNING MEDICATIONS ADMINISTERED AT THIS TIME. DR. FUENTES CALLED FOR UPDATE ON PT. VERBAL ORDERS RECIEVED TO PLACE PT NPO UNTIL SURGERY. CONSENT FOR SURGERY COLLECTED AT THIS TIME. NO COMPLAINTS/CONCERNS AT THIS TIME.
--- NOTE | 2024-03-16 08:52 | NUR ---
Shift assessment reviewed. This nurse precepting DANIELA Castrejon
[2024-03-16] MEDS ORDERED: Lidocaine PF 2% (20 MG/ML) 5 ML VIAL ONE (12:39)
--- NOTE | 2024-03-16 12:45 | NUR ---
PT TAKEN DOWN FOR PROCEDURE VIA CART. VSS.
--- NOTE | 2024-03-16 13:39 | NUR ---
PT RETURNS TO FLOOR FROM PROCEDURE. VSS. PT REPORTS NO PAIN. NO OTHER COMPLAINTS AT THIS TIME.
--- NOTE | 2024-03-16 17:55 | NUR ---
Dr. Ibrahim notified of Pt.'s concern for going home tonight. Dr. ibrahim ok with pt. staying.
--- NOTE | 2024-03-16 18:25 | NUR ---
PT REQUESTS PRN PAIN MEDICATION. PT STATES SHE IS CONCERNED AND FEELS MORE COMFRTABLE STAYING ANOTHER NIGHT. DR. SYLVESTER NOTIFIED. CALL LIGHT WITHIN REACH. NO FURTHER COMPLAINTS OR CONCERNS AT THIS TIME.
--- NOTE | 2024-03-16 20:30 | NUR ---
Initial shift assessment done- states abd pain 11/15 ,not time for another [place], pt ok with that,, Up to BSC -having liquid stool,small amount. States slight nausea, but is almost always somewhat nauseated?,, IV fluids of NS at 75cc/hr. States will probably go home tomorrow.
[2024-03-16] MEDS ORDERED: Insulin Glargine-ygfn (Lantus) SQ SCH (21:00)
--- NOTE | 2024-03-16 23:45 | NUR ---
States feeling really nauseated and also would like her xanax before bed - Zofran IV and Xanax po given at this time as ordered.
[2024-03-17 00:22] VITALS: BP 134/70; PULSE 55; TEMP 98.6
[2024-03-17 00:40] VITALS: BP_SYST 134
[2024-03-17 03:59] VITALS: BP 147/67; PULSE 60; TEMP 98.6
[2024-03-17 05:00] VITALS: BP_SYST 147
--- NOTE | 2024-03-17 05:00 | NUR ---
Did not get much sleep last night- states overall just could not get comfortable,, states the [place] might cause some nausea so does not want to take. IV fluids of NS at 75cc/hr. did have a total of 3 episodes of liquid stool last night-
--- NOTE | 2024-03-17 06:12 | NUR ---
Did decide to take the [place] and Zofran at this time for abd pain/nausea.
[2024-03-17 06:55] LABS: BASO % 0.8 % (0.0-2.0); EOS # 0.1 K/mm3 (0.0-0.7); EOS % 2.8 % (0.0-4.0); GRAN # 1.5 K/mm3 (1.4-6.5); HEMOGLOBIN 10.5 g/dl (12.5-16.0); LYMPH # 2.8 K/mm3 (1.2-3.4); LYMPH % 55.9 % (20.0-51.0); MEAN CELL VOLUME 85 fl (80.0-100.0); MEAN CORPUSCULAR HEMOGLOBIN 27 pg (27-31); MEAN CORPUSCULAR HGB CONC 32 g/dl (33.0-37.0); MEAN PLATELET VOLUME 10.3 fl (7.4-10.4); MONO # 0.5 K/mm3 (0.1-0.6); MONO % 9.3 % (1.7-9.3); PLATELET COUNT 113 K/mm3 (130-400); RED BLOOD COUNT 3.85 M/mm3 (4.10-5.30); REDCELL DISTRIBUTION WIDTH-CV 14.6 % (11.5-14.5)
[2024-03-17 06:58] LABS: HEMATOCRIT 32.8 % (37.0-47.0)
[2024-03-17 07:10] LABS: ANION GAP 8 mmol/L (7-16); CHLORIDE 114 mEq/L (98-107); GLUCOSE 174 mg/dL (70-99); POTASSIUM 3.6 mEq/L (3.5-4.5); SODIUM 140 mEq/L (136-145)
[2024-03-17 07:22] VITALS: BP 147/62; PULSE 58; TEMP 98.4
[2024-03-17 07:22] LABS: BLOOD UREA NITROGEN < 5 mg/dL (10-20)
--- NOTE | 2024-03-17 07:32 | NUR ---
Bedside report received from HOWARD Darnell. Pt resting in bed with no complaints. Call light within reach.
--- NOTE | 2024-03-17 08:14 | NUR ---
Pt awake in bed eating breakfast. Shift assessment completed. VSS. Pt is A&O x4. Pt denies pain/discomfort rating 0/10 at this time. IVF infusing into Lt wrist with no complications. Pt has no complaints at this time. Call light within reach.
[2024-03-17 08:17] VITALS: BP_SYST 147
[2024-03-17] MEDS ORDERED: MIRALAX PA17 GM/Dose PO (09:11)
--- NOTE | 2024-03-17 11:30 | NUR ---
Discharge instructions provided to pt and pt verbalized understanding of discharge paperwork. INT to RW discontinued with tip intact, pt tolerated well with no compliants. Pt left facility with family member back to home.
== END 2024-03-17 11:30 | disposition home or self-care (01) | DRG 392 ==
LOC: COL.ER 18:37 → SURG 21:30 → MEDICAL 21:30
PROVIDERS: Family Medicine; Nurse Practitioner Family; ADMIT Internal Medicine
DX: K52.9 Noninfective gastroenteritis and colitis, unspecified (principal); E87.1 Hypo-osmolality and hyponatremia; K21.9 Gastro-esophageal reflux disease without esophagitis; E83.52 Hypercalcemia; N18.30 Chronic kidney disease, stage 3 unspecified; J44.9 Chronic obstructive pulmonary disease, unspecified; I10 Essential (primary) hypertension; E78.5 Hyperlipidemia, unspecified; E11.649 Type 2 diabetes mellitus with hypoglycemia without coma; Z79.4 Long term (current) use of insulin; F41.9 Anxiety disorder, unspecified
CPT/HCPCS: J1650; J1815; J2270; J2405; J2543; J2704; J3010; J7030; J7120; Q9967

== ENCOUNTER 2024-06-17 10:34 | Outpatient (CLI) | payer MEDICARE, MEDICAID ==
[~2024-06-17] VITALS: Ht 147.3 cm; Wt 48.1 kg
[~2024-06-17 10:34] MED LIST changes: +BENTYL 10MG10 MG/CAP PO; +FLONASE NASAL S16 GM NS; +HUMALOG PEN100 U/ML SQ; +LANTUS SOLOS100 U/ML SQ; +LASIX 20MG TABL20 MG PO; +MIRALAX PA17 GM/Dose PO; +PROTONIX 40MG T40 MG PO
[2024-06-17] MEDS ORDERED: Denosumab 60 MG/ML SYRINGE SQ ONE (11:00)
[2024-06-17 11:08] VITALS: BP 136/79; PULSE 56; TEMP 98.9
== END 2024-06-17 11:48 ==
LOC: EUO 10:34
DX: M81.0 Age-related osteoporosis without current pathological fracture (principal)
CPT/HCPCS: J0897